=== PATIENT | male | born 1955 | race Caucasian/White ===

== ENCOUNTER → 2024-04-16 06:14 | Day surgery (SDC) | payer MEDICARE, OTHER, SELFPAY | LOC: GI 06:14 | PROVIDERS: ATTENDING PHYSICIAN Internal Medicine | DX: Z12.11 Encounter for screening for malignant neoplasm of colon (principal); D12.2 Benign neoplasm of ascending colon; K57.30 Diverticulosis of large intestine without perforation or abscess without bleeding; Z86.0101 Personal history of adenomatous and serrated colon polyps | CPT/HCPCS: 45385; 88305 ==

== ENCOUNTER → 2024-09-17 11:21 | Outpatient (REF) | payer MEDICARE, OTHER, SELFPAY ==
[2024-09-17 12:27] LABS: % Basophils 1.3 % (0-2); % Eosinophils 2.6 % (0-6); % Immature Granulocytes 0.2 % (0-0.5); % Monocytes 11.3 % (1.7-9.3); % Neutrophils 60.6 % (42.2-75.2); Absolute Basophils 0.1 10^3/uL (0-0.2); Absolute Eosinophils 0.1 10^3/uL (0-0.7); Absolute Lymphocytes 1.1 10^3/uL (1.2-3.4); Absolute Monocytes 0.5 10^3/uL (0.1-0.6); Absolute Neutrophils 2.8 10^3/uL (1.4-6.5); Hematocrit 38.7 % (39.0-52.0); Mean Corp Hgb Conc. 33.6 g/dL (33.0-37.0); Mean Corpuscular Hgb 30.4 pg (27.0-31.0); Mean Corpuscular Volume 90.6 fL (80.0-94.0); Mean Platelet Volume 10.5 fL (7.4-10.4); Nucleated Red Blood Cells % 0 % (-); Platelet Count 239 10^3/uL (130-400); Red Blood Cell Count 4.27 10^6/uL (4.70-6.10); Red Cell Dist. Width 13.5 % (11.5-14.5); White Blood Cell Count 4.7 10^3/uL (4.8-10.8)
[2024-09-17 12:47] LABS: Blood Urea Nitrogen 18 mg/dl (9-20); Calcium 9.4 mg/dl (8.4-10.2); Carbon Dioxide 31 mmol/L (22-30); Chloride 100 mmol/L (98-107); Glucose 92 mg/dl (70-99); Potassium 4.7 mmol/L (3.5-5.1); Sodium 137 mmol/L (135-145); eGFR > 60.00
== END ==
LOC: RCS 11:21
PROVIDERS: ATTENDING PHYSICIAN Orthopaedic Surgery; FAMILY PHYSICIAN Family Medicine
DX: Z01.818 Encounter for other preprocedural examination (principal)
CPT/HCPCS: 36415; 80048; 85025; 93005

== ENCOUNTER → 2024-11-27 14:03 | Outpatient (REF) | payer MEDICARE, OTHER, SELFPAY | LOC: RAD 14:03 | PROVIDERS: ATTENDING PHYSICIAN Family Medicine | DX: M54.16 Radiculopathy, lumbar region (principal) | CPT/HCPCS: 72110 ==

== ENCOUNTER 2024-12-20 07:34 | Outpatient (RCR) | payer MEDICARE, OTHER, SELFPAY | END 2024-12-20 23:59 | disposition home or self-care (01) | LOC: RPT 07:34 | PROVIDERS: ATTENDING PHYSICIAN Family Medicine | DX: M54.16 Radiculopathy, lumbar region (principal); M51.362 Other intervertebral disc degeneration, lumbar region with discogenic back pain and lower extremity pain; Z73.6 Limitation of activities due to disability; M79.604 Pain in right leg | CPT/HCPCS: 97110; 97161 ==